=== PATIENT | male | born 1960 | race African-American/Black ===

== ENCOUNTER → 2023-04-25 | Day surgery (SDC) | payer MEDICAID, OTHER ==
[~2023-04-25] VITALS: Ht 190.5 cm; Wt 93.0 kg
[~2023-04-25] MED LIST: ACETAMINOPHEN 325MG TABLET PO PRN; ASPIRIN/SOD BICARB/CITRIC ACID 324MG TAB EFF ONE; ATOR40TA70 PO; ATROPINE SULFATE 1MG/10ML SYR IV PRN; CLOP75TA33 PO; FENTANYL CITRATE/PF 50MCG/ML 2ML VIAL ONE; HEPARIN 1000 UNITS/ML 10ML ONE; HYDR100T26 PO; IODIXANOL 320MG/ML 100 ML BOTTLE IV ONE; LEVO50TA8 PO; LIDOCAINE HCL 1% 20ML VIAL (Pyxis) INJ ONE; LISI20TA31 PO; MIDAZOLAM HCL 2 MG/2 ML VIAL ONE; MORPHINE SULFATE 2 MG/ML CPJ (NOT FOR IM USE) IV PRN; NALOXONE HCL 0.4MG/ML VIAL IV PRN; ONDANSETRON HCL 4MG/2ML INJ IV PRN
[2023-04-25 07:49] LABS: BASOPHILS % 0.3 % (0.0-2.0); EOSINOPHILS % 2.5 % (0.0-5.0); HEMATOCRIT. 41.9 % (42.0-52.0); HEMOGLOBIN. 13.9 g/dL (14.0-18.0); LYMPHOCYTES % 46.5 % (20.0-50.0); MEAN CORPUSCULAR HEMOGLOBIN 28.7 pg (28.0-32.0); MEAN CORPUSCULAR HGB CONC 33.2 g/dL (31.0-37.0); MEAN CORPUSCULAR VOLUME 86.6 fL (80.0-94.0); MEAN PLATELET VOLUME 9.1 fl (7.4-10.4); NEUTROPHILS % 40.7 % (40.0-76.0); PLATELET 139 x1000/uL (130-400); RED BLOOD CELL COUNT 4.84 mill/uL (4.7-6.1); RED CELL DISTRIBUTION WIDTH 13.5 % (11.6-14.6)
[2023-04-25 08:20] LABS: CALCIUM 9.6 mg/dL (8.7-10.4); CARBON DIOXIDE 30 mEq/L (21-32); CHLORIDE 108 mEq/L (98-107); CREATININE 1.4 mg/dL (0.6-1.3); GLUCOSE 102 mg/dL (70-105); POTASSIUM 4.8 mEq/L (3.5-5.1); SODIUM 144 mEq/L (136-145); UREA NITROGEN BLOOD 14 mg/dL (9-23)
== END | disposition home or self-care (01) ==
LOC: CCL 07:20
PROVIDERS: ATTEND Specialist
DX: I25.10 Atherosclerotic heart disease of native coronary artery without angina pectoris (principal); I10 Essential (primary) hypertension; Z86.73 Personal history of transient ischemic attack (TIA), and cerebral infarction without residual deficits; Z87.891 Personal history of nicotine dependence; Z98.890 Other specified postprocedural states; Z79.899 Other long term (current) drug therapy
CPT/HCPCS: 93458; 93005; 80048; 85025; 36415; 93880; 71045; 93970; J3010; Q9967; J1644 ×2; J3490; J2250; C1887; 93459; 99152; 99153; G0500